=== PATIENT | male | born 1940 ===

== ENCOUNTER 2017-01-06 06:35 | Inpatient (IN) | payer MEDICAID ==
[2017-01-06 07:03] LABS: ADD MANUAL DIFF? NO
[2017-01-06 07:09] LABS: BASO # 0.01 K/mm3 (0.0-2.0); BASO % 0.2 % (0.0-3.0); EOS # 0.1 (0.0-0.7); EOS % 1.2 % (1.5-5.0); GRAN # 3.76 (1.4-6.5); GRAN % 65.2 % (50.0-68.0); LYMPH # 1.5 (1.2-3.4); LYMPH % 25.1 % (22.0-35.0); MEAN CELL VOLUME 79.7 fL (80.0-105.0); MEAN CORPUSCULAR HEMOGLOBIN 27.7 pg (25.0-35.0); MEAN CORPUSCULAR HGB CONC 34.8 g/dl (31.0-37.0); MONO # 0.5 (0.1-0.6); MONO % 8.3 % (1.0-6.0); PLATELET COUNT 74 10^3/uL (120.0-450.0); RED CELL DISTRIBUTION WIDTH 15.3 % (11.5-14.5); WHITE BLOOD COUNT 5.8 10^3/ul (4.5-11.0)
[2017-01-06 07:18] LABS: INR 1.15 (0.93-1.08); PARTIAL THROMBOPLASTIN TIME 27.3 Seconds (23.7-30.8)
[2017-01-06 07:24] LABS: BLOOD UREA NITROGEN 15 mg/dL (7-21); CALCIUM 9.2 mg/dL (8.4-10.5); CARBON DIOXIDE 29 mmol/L (21-33); CHLORIDE 102 mmol/L (98-107); CHOLESTEROL 183 mg/dL (130-200); GFR AFRICAN-AMERICAN > 60; GLUCOSE,RANDOM 140 mg/dL (70-110); POTASSIUM 4.2 mmol/L (3.6-5.0); SODIUM 138 mmol/L (132-148)
--- NOTE | 2017-01-06 08:29 | HP ---
REASON FOR ADMISSION: Left heart cath, possible angioplasty, abnormal stress test. BRIEF CLINICAL HISTORY: A 76-year-old male with past medical history of type 2 diabetes, hypertensio n, hyperlipidemia, complaining of dyspnea on exertion, possible anginal equivalent, abnormal stress t est, complains of chest on walking, then gets better on standing. The patient is admitted for electi ve cardiac cath, possible angioplasty. PAST MEDICAL HISTORY: Significant for diabetes, hypertension, hyperlipidemia, mild obesity. SOCIAL HISTORY: Denies ____ history of alcohol abuse. CURRENT MEDICATIONS: The patient is taking enalapril 10 mg daily, Aricept 5 mg daily, aspirin 81 mg daily, multivitamin 1 tablet daily, metoprolol succinate 25 mg daily, insulin Lantus 20 units daily, Lasix 20 mg daily, hydralazine 25 ____ REVIEW OF SYSTEMS: As per HPI. ALLERGIES: No known drug allergies. PHYSICAL EXAMINATION: VITAL SIGNS: Height of the patient is 5 feet 4 inches. The patient 180 pounds, body mass 30.9 kg/mc 2, heart rate 60, blood pressure 130/72. HEENT: PERRLA. Extraocular muscles intact. NECK: Supple. No carotid bruits. No thyromegaly. CHEST: Clear to auscultation. HEART: S1, S2 regular. ABDOMEN: Soft. EXTREMITIES: Clubbing and cyanosis negative. BLOOD WORKUP: Pending. CARDIAC WORKUP FOLLOWS: The patient had a stress test dated 12/02/2016 that showed ejection fract ion 43% ____ myocardial ____ partially reversible distal anteroseptal and inferior ischemia. 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 The patient is scheduled for elective cardiac catheterization. Further recommendation after cardiac catheterization. We will follow with you. Thank you, ____ for providing the opportunity in taking care of patient. Christoph Rosado MD cc: [id number] TT: 01/03/2017 21:07:27 arvind
[2017-01-06] MEDS ORDERED: Nitroglycerin 50mg in D5W 50 MG/250 ML BOTTLE IV ONE (08:34)
[2017-01-06] MEDS ORDERED: Lidocaine 2% Inj (20ml) ONE (09:01)
[2017-01-06] MEDS ORDERED: Midazolam 2 MG/2 ML VIAL ONE (09:09)
[2017-01-06] MEDS ORDERED: Bacitracin 500 Units/gm Oint Foilpak UD TOP ONE (10:18)
[2017-01-06] MEDS ORDERED: Sodium Chloride 0.9% 1,000 ML IV SCH ×3 (10:30→16:05)
--- NOTE | 2017-01-06 11:17 | CARD ---
APPROVED REPORT EKG Measurement Heart [id number] <Conclusion> Normal sinus rhythm LVH by voltage IVCD STTW changes c/w ischemia
[2017-01-06] MEDS: Insulin Reg-LOW-Coverage SC SCH ×3 (11:31→21:41)
[2017-01-06] MEDS ORDERED: Bacitracin 500 Units/gm Oint Foilpak UD ONE (12:27)
--- NOTE | 2017-01-06 18:51 | CARD ---
APPROVED REPORT Procedure(s) performed: Left Heart Catheterization Aortogram HISTORY The patient is a 76 year-old male with a history of : most recent EF: 43%. (EF Method: RADIONUCLIDE), diabetes mellitus with insulin treatment , hypertension , dyslipidemia , Chest pain and KOTHARI on Exertion. INDICATION The indication(s) include : positive stress test, dyspnea. CASE TECHNIQUE The patient was brought electively to the Cardiac Catheterization Laboratory in a fasting state and was prepped and draped in a sterile manner. The left wrist was infiltrated with 2% Lidocaine subcutaneous anesthesia. A 6 Fr Glidesheath (Radial) sheath was inserted into the left radial artery without difficulty. Coronary angiography was performed using coronary diagnostic catheters. The left coronary system was accessed and visualized with a Diagnostic ,5 Fr JL 4 catheter. The right coronary system was accessed and visualized with a Diagnostic ,5 Fr JR 4 catheter. The left ventricle was accessed and visualized with a 5 Fr Pigtail 145 (Angled) catheter. Left ventricular/Aortic Valve gradient assessed on pullback. Left ventriculogram was performed in JUNG projection. Closure device was deployed with a Fr TR Band (Regular) without any complications. The patient tolerated the procedure well and there were no complications associated with the procedure. Vessel Analysis The patient's coronary anatomy is co-dominant. The left main coronary artery is a large size vessel with diffuse calcification noted throughout this vessel and with significant stenosis. There is a 80% stenosis in the distal segment. The left main bifurcates to the left anterior descending and circumflex. The left anterior descending artery is a medium size vessel with diffuse calcification noted throughout this vessel and with significant stenosis. There is a 99% stenosis in the ostial segment. Mid LAD has 70 % stenosis The first diagonal branch is a medium size vessel with diffuse calcification noted throughout this vessel and without significant stenosis. The circumflex artery is a large size vessel with diffuse calcification noted throughout this vessel and with significant stenosis. There is a 80% stenosis in the ostial segment. The first obtuse marginal branch is a small size vessel with diffuse calcification noted throughout this vessel and without significant stenosis. The second obtuse marginal branch is a large size vessel with diffuse calcification noted throughout this vessel and without significant stenosis. The left posterior descending artery is a medium size vessel with diffuse calcification noted throughout this vessel and without significant stenosis. The right coronary artery is a medium size vessel with diffuse calcification noted throughout this vessel and with significant stenosis. There is a 80% stenosis in the ostial segment. Mid RCA has 70-80% stenosis The right posterior descending artery is a small size vessel with diffuse calcification noted throughout this vessel and with significant stenosis. There is a 90% stenosis in the ostial segment. Left Ventricle The left ventricle is Normal in size with Normal contractility. There was no cardiomyopathy. The left ventricular ejection fraction is estimated to be 55-60%. The left ventricular end diastolic pressure is 13-14 mmHg. There was no gradient across the aortic valve upon pullback. Conclusion Trple Vessel Disease Including Left Main LAD, Circumflex, and RCA Preserved LV FX.EF-55-60%, EDP-13-14 mmof Hg. Recommendations Revascularization [facility] VS High Risk PTCA with Impella Device. Pt has Very early Dementia and family is refusing for OHS. CC; Dr. Valentin Blankenship MD
[2017-01-06] MEDS: Insulin Detemir 100 units/ml Vial (Levemir) SC SCH (21:42)
[2017-01-06] MEDS ORDERED: INSULIN GLARGINE RECOMBINA 20 UNIT SC SCH (22:00)
[2017-01-07] MEDS: Insulin Reg-LOW-Coverage SC SCH ×4 (07:30→21:23)
[2017-01-07] MEDS: Insulin Detemir 100 units/ml Vial (Levemir) SC SCH ×2 (07:30→21:31)
[2017-01-07] MEDS ORDERED: Nitroglycerin 2% Ointment Foilpak UD TOP PRN (07:34)
[2017-01-07 09:19] LABS: ADD MANUAL DIFF? NO
[2017-01-07 09:21] LABS: EOS # 0.1 (0.0-0.7); EOS % 0.8 % (1.5-5.0); GRAN # 4.23 (1.4-6.5); GRAN % 71.8 % (50.0-68.0); HEMATOCRIT 39.6 % (42.0-52.0); LYMPH # 1.1 (1.2-3.4); LYMPH % 18.1 % (22.0-35.0); MEAN CELL VOLUME 79.4 fL (80.0-105.0); MEAN CORPUSCULAR HEMOGLOBIN 27.9 pg (25.0-35.0); MEAN CORPUSCULAR HGB CONC 35.1 g/dl (31.0-37.0); MEAN PLATELET VOLUME 12.2 fl (7.0-11.0); MONO # 0.6 (0.1-0.6); MONO % 9.3 % (1.0-6.0); PLATELET COUNT 69 10^3/uL (120.0-450.0); RED CELL DISTRIBUTION WIDTH 15.2 % (11.5-14.5); WHITE BLOOD COUNT 5.9 10^3/ul (4.5-11.0)
[2017-01-07 09:30] LABS: BLOOD UREA NITROGEN 9 mg/dL (7-21); CARBON DIOXIDE 28 mmol/L (21-33); CHLORIDE 100 mmol/L (95-110); GFR AFRICAN-AMERICAN > 60; GLUCOSE,RANDOM 111 mg/dL (70-110); SODIUM 136 mmol/L (132-148)
[2017-01-07] MEDS: Metoprolol Succinate 25 mg XL Tab PO SCH (09:44)
[2017-01-07] MEDS ORDERED: Non Formulary Medication (Vitamin B Complex [Balance B-100] 1 TAB) PO SCH (10:00)
--- NOTE | 2017-01-07 11:12 | PN ---
DATE: 01/07/2017 REASON FOR ADMISSION AND FOLLOWUP: Left heart ____, left main disease, triple vessel disease. BRIEF CLINICAL HISTORY: This is a 76-year-old male with past medical history of diabetes, hypertensi on, hyperlipidemia, complaining of dyspnea on exertion, chest pain on exertion. The patient underwen t cardiac catheterization yesterday that revealed distal left main, ostial LAD, ostial circumflex dis ease and RCA disease. The patient has possible early dementia, not a good candidate for open heart s urgery with postop complication as well as the patient's family refused open heart surgery. The ruma ent is scheduled for high risk PTCA with Impella device at [facility]; awaiting for authorization. Denies a ny chest pain, shortness of breath, any palpitation. PHYSICAL EXAMINATION: VITAL SIGNS: Temperature afebrile, heart rate 69, blood pressure 140/78. HEENT: PERRLA. Extraocular muscles intact. NECK: Supple. No carotid bruits. No thyromegaly. CHEST: Clear to auscultation. HEART: S1, S2 regular. ABDOMEN: Soft. EXTREMITIES: Clubbing and cyanosis negative. BLOOD WORKUP: As follows: WBC 5.8, hemoglobin 13.8, hematocrit 40.0, platelet count 74. Chemistry shows sodium 130, potassium 4.2, chloride 102, carbon dioxide 20, anion gap of 11, BUN 5, creatinine 0.8. IMPRESSION: Unstable angina, diabetes, hypertension, hyperlipidemia, status post cardiac catheteriza tion, left main disease, ostial circumflex, ostial left anterior descending disease, ostial right cor onary artery disease, mid right coronary artery disease, multiple coronary artery disease, early jeffery ntia, not a suitable candidate for open heart surgery. Also, the family is refusing open heart surge ry. Suggested high risk percutaneous transluminal coronary angioplasty at [facility] with Im pella device; awaiting for authorization. RECOMMENDATION: Will get blood workup today. Will follow with you. Continue interim aspirin, jud nue Plavix, continue gentle Lasix, continue nitroglycerin 1 inch, continue beta chnao. Will follow with you. Thank you, ____ for providing us the opportunity in taking care of this patient. Christoph Rosado MD cc: [id number] TT: 01/07/2017 11:12:03 Confirmation # [id number] Dictation # [id number] mn
[2017-01-07] MEDS: Non Formulary Medication (Vitamin B Complex [Balance B-100] 1 TAB) PO SCH (11:50)
--- NOTE | 2017-01-07 12:06 | DS ---
BRIEF CLINICAL HISTORY: This is a 76-year-old obese male, body mass index of 31.3 kg/m2, diabetes, h ypertension, hyperlipidemia, history of chest pain on exertion, abnormal stress test. The patient un derwent cardiac catheterization that revealed left main ostial circumflex, ostial LAD disease, and RC A disease. The patient is scheduled for PTCA, high risk PTCA, at [facility], waiting for the transfer and a uthorization. Once the authorization is obtained, patient will be transferred to [facility] for PTCA, high risk, at [facility]. MEDICATIONS ON DISCHARGE: Include ramipril 5 mg daily, aspirin 81 mg daily, prednisone 5 mg daily, L asix 20 mg daily, Nitro patch 1 daily, amlodipine, nitro paste 1 inch q. 6 hours daily, beta chano 25 mg daily, prednisone 5 mg daily. FINAL DIAGNOSES: Coronary artery disease, angina, abnormal stress test, status post cardiac catheter ization, left main disease and severe triple vessel disease, diabetes, hypertension, hyperlipidemia, obesity, this admission include left heart catheterization. The patient is discharged to [facility] f or percutaneous transluminal coronary angioplasty of left main, left anterior descending and circumfl ex. Christoph Rosado MD cc:Dawrin Rehman DPM [id number] TT: 01/07/2017 12:05:33 whitney
[2017-01-08 07:40] LABS: ADD MANUAL DIFF? NO
[2017-01-08 07:48] LABS: BASO # 0.01 K/mm3 (0.0-2.0); BASO % 0.2 % (0.0-3.0); EOS # 0.1 (0.0-0.7); EOS % 1.6 % (1.5-5.0); GRAN # 3.77 (1.4-6.5); GRAN % 62.1 % (50.0-68.0); HEMATOCRIT 40.9 % (42.0-52.0); LYMPH # 1.5 (1.2-3.4); LYMPH % 24.4 % (22.0-35.0); MEAN CELL VOLUME 79.4 fL (80.0-105.0); MEAN CORPUSCULAR HEMOGLOBIN 27.8 pg (25.0-35.0); MONO # 0.7 (0.1-0.6); MONO % 11.7 % (1.0-6.0); PLATELET COUNT 71 10^3/uL (120.0-450.0); RED CELL DISTRIBUTION WIDTH 15.3 % (11.5-14.5); WHITE BLOOD COUNT 6.1 10^3/ul (4.5-11.0)
[2017-01-08] MEDS: Insulin Detemir 100 units/ml Vial (Levemir) SC SCH ×2 (07:54→22:15)
[2017-01-08 07:56] LABS: BLOOD UREA NITROGEN 16 mg/dL (7-21); CALCIUM 9.1 mg/dL (8.4-10.5); CARBON DIOXIDE 29 mmol/L (21-33); CHLORIDE 99 mmol/L (95-110); GFR AFRICAN-AMERICAN > 60; GLUCOSE,RANDOM 93 mg/dL (70-110); MAGNESIUM 1.8 mg/dL (1.7-2.2); PHOSPHOROUS 3.6 mg/dL (2.5-4.5); POTASSIUM 3.9 mmol/L (3.6-5.0); SODIUM 137 mmol/L (132-148)
[2017-01-08] MEDS: Insulin Reg-LOW-Coverage SC SCH ×4 (08:00→22:02)
[2017-01-08] MEDS: Metoprolol Succinate 25 mg XL Tab PO SCH (09:49)
[2017-01-08] MEDS: Non Formulary Medication (Vitamin B Complex [Balance B-100] 1 TAB) PO SCH (10:08)
--- NOTE | 2017-01-08 12:42 | PN ---
DATE: 01/08/[address] Rosado. The patient denies any chest pain or shortness of breath. PHYSICAL EXAMINATION: VITAL SIGNS: Blood pressure 122/60, heart rate 69, temperature 98, respirations 18. HEENT: Normocephalic. NECK: No JVD. CHEST: Clear. HEART: S1, S2 regular. Grade II/ ejection systolic murmur over left sternal border. ABDOMEN: Soft. EXTREMITIES: No edema. LABORATORIES: Hemoglobin and hematocrit are 14.3 and 40.9, white count 6.1, platelet count 71,000. Today's SMA-7 is within normal limit. ASSESSMENT: 1. Unstable angina. 2. Left main coronary artery disease with ostial circumflex and ostial left anterior descending dise ase and ostial right coronary artery disease with mid right coronary artery disease. The patient and family refused open heart surgery. 3. Hypertension and diabetes mellitus. 4. Hyperlipidemia. 5. Thrombocytopenia. RECOMMENDATIONS: Continue current Altace at 5 mg once a day, hydralazine 25 mg once a day, Aricept a t 5 mg once a day, aspirin 81 mg once a day, Lasix 20 mg once a day, Norvasc at 5 mg once a day, Plav ix 75 mg once a day, Toprol-XL 25 mg once a day. The plan that is already set with Dr. Rosado is to tr ansfer the patient tomorrow to [facility] for high risk PCI as per family's and ruma ent's request, as they refuse open heart surgery. Chino Zhao MD cc: [id number] TT: 01/08/2017 12:42:17 Confirmation # [id number] Dictation # [id number] mn
[2017-01-08 22:19] VITALS: BMI 29.3
[2017-01-08] MEDS ORDERED: Pneumococcal 23-Valent Vaccine IM ONE (22:19)
[2017-01-09 02:18] VITALS: O2SAT 98
[2017-01-09] MEDS: Insulin Reg-LOW-Coverage SC SCH ×4 (08:09→22:45)
[2017-01-09] MEDS: Insulin Detemir 100 units/ml Vial (Levemir) SC SCH ×2 (08:12→22:30)
[2017-01-09] MEDS: Metoprolol Succinate 25 mg XL Tab PO SCH (10:09)
[2017-01-09] MEDS: Non Formulary Medication (Vitamin B Complex [Balance B-100] 1 TAB) PO SCH (10:14)
[2017-01-09 13:13] VITALS: RESP 20
--- NOTE | 2017-01-09 13:23 | PN ---
DATE: 01/09/2017 SUBJECTIVE: The patient denies any chest pain or shortness of breath. No reported ventricular arrhy thmia. PHYSICAL EXAMINATION: VITAL SIGNS: Blood pressure 137/73, heart rate 67, temperature 97.9, respirations 19. HEENT: Normocephalic. NECK: No JVD. CHEST: Minimal basal rhonchi. HEART: S1, S2 regular. EXTREMITIES: No edema. LABORATORIES: Today's blood sugar is 98 and 106. ASSESSMENT: 1. Unstable angina. 2. Left main disease with ostial circumflex and ostial left anterior descending disease, as well as ostial right coronary artery and mid right coronary artery disease. 3. Hypertension and diabetes mellitus. 4. Hyperlipidemia. 5. Thrombocytopenia. RECOMMENDATIONS: Continue current Ultracet at 5 mg once a day, hydralazine 25 mg daily, Aricept 5 mg once a day, aspirin 81 mg once a day, Lasix 20 mg p.o. once a day, Norvasc 5 mg once a day, Plavix 7 5 mg once a day, Toprol XL 25 mg once a day. Plans to transfer the patient to [facility] were postponed for tomorrow morning. Chino Zhao MD cc: [id number] TT: 01/09/2017 13:22:32 Confirmation # [id number] Dictation # [id number] whitney
[2017-01-10 07:25] VITALS: BP 99/57; PULSE 64; TEMP 98.6
--- NOTE | 2017-01-10 12:33 | DS ---
BRIEF CLINICAL HISTORY: A 76-year-old male, obese, with past medical history significant for diabete s, hypertension, hyperlipidemia, abnormal stress test. The patient underwent cardiac catheterization that revealed left main distal disease, ostial circumflex, ostial LAD disease and RCA disease. The patient is being transferred to [facility] for high risk angioplasty, PTCA at [facility]. D enies any chest pain now. MEDICATION USED: Include ramipril 5 mg daily, aspirin 81 mg, prednisone 5 mg daily, Lasix 20 mg cj y, ____ q. 6, amlodipine 5 mg daily, 25 mg of Lopressor twice daily. FINAL DIAGNOSES: Coronary artery disease, angina, abnormal stress test, unstable angina, diabetes, h ypertension, hyperlipidemia. PRINCIPAL PROCEDURES DONE THIS ADMISSION: Include left heart catheterization. Discharged to [facility] for high risk PTCA. Christoph Rosado MD cc:Darwin Rehman DPM [id number] TT: 01/10/2017 12:14:12 al
== END 2017-01-10 07:31 | disposition short-term general hospital (02) | DRG 124 ==
LOC: CATH 06:35 → 2RSO 10:23 → CATH 01-07 13:35 → 2RSO 01-07 13:35 → 2RNO 01-09 05:49
PROVIDERS: ADMIT Internal Medicine Cardiovascular Disease; ATTEND Internal Medicine Cardiovascular Disease
PROC: 4A023N7 Measurement of Cardiac Sampling and Pressure, Left Heart, Percutaneous Approach (ICD-10-PCS; principal; 2017-01-06)
PROC: B2111ZZ Fluoroscopy of Multiple Coronary Arteries using Low Osmolar Contrast (ICD-10-PCS; 2017-01-06)
PROC: B2151ZZ Fluoroscopy of Left Heart using Low Osmolar Contrast (ICD-10-PCS; 2017-01-06)
DX: I25.110 Atherosclerotic heart disease of native coronary artery with unstable angina pectoris (principal); D69.6 Thrombocytopenia, unspecified; F03.90 Unspecified dementia, unspecified severity, without behavioral disturbance, psychotic disturbance, mood disturbance, and anxiety; E11.9 Type 2 diabetes mellitus without complications; I10 Essential (primary) hypertension; E78.5 Hyperlipidemia, unspecified; E66.9 Obesity, unspecified; Z68.31 Body mass index [BMI] 31.0-31.9, adult; Z79.4 Long term (current) use of insulin